=== PATIENT | male | born 1985 | race Asian ===

== ENCOUNTER 2018-10-22 12:36 | Emergency (ER) | payer SELFPAY, OTHER | END 2018-10-22 15:47 | disposition home or self-care (01) | LOC: FTE 12:36 | DX: S42.201A Unspecified fracture of upper end of right humerus, initial encounter for closed fracture (principal); W18.39XA Other fall on same level, initial encounter; Y92.9 Unspecified place or not applicable | CPT/HCPCS: 99282 ==